=== PATIENT | female | born 1995 | race African-American/Black ===

== ENCOUNTER 2019-08-20 13:28 | Emergency (ER) | payer OTHER, SELFPAY ==
[2019-08-20 13:33] VITALS: BP 140/89; PULSE 83; RESP 20; TEMP 36.4; O2SAT 99
[2019-08-20 14:04] LABS: UR Morphine/Opiate cutoff 300 Negative (Negative); Ur Creatinine Normal (Normal); Ur Specific Gravity Normal (Normal); Urine Amphetamines Negative (Negative); Urine Barbiturates Negative (Negative); Urine Benzodiazepines Negative (Negative); Urine Cocaine Negative (Negative); Urine MDMA Negative (Negative); Urine Methadone Negative (Negative); Urine Methamphetamines Negative (Negative); Urine Oxycodone Negative (Negative); Urine Phencyclidine Negative (Negative); Urine Tetrahydrocannabinol Negative (Negative); Urine Tricyclic Antidepressant Negative (Negative); Urine pH Normal (Normal)
[2019-08-20 14:05] LABS: Add Manual Diff / Slide Review NO; Basophils Absolute Auto 100 /uL (0-100); Basophils Percent Auto 0.7 % (0-2); Eosinophils Absolute Auto 300 /uL (0-450); Eosinophils Percent Auto 2.9 % (2-4); Hematocrit 37.7 % (36-46); Hemoglobin 12.8 g/dL (12.0-16.0); Lymphocytes Absolute Auto 2000 /uL (1100-4500); Lymphocytes Percent Auto 18.5 % (25-40); Mean Corpuscular HGB Conc 33.8 % (30-36); Mean Corpuscular Hemoglobin 29.7 PG (26-34); Mean Corpuscular Volume 87.7 fL (80-100); Monocytes Absolute Auto 700 /uL (0-900); Monocytes Percent Auto 6.1 % (3-14); Neutrophils Absolute Auto 7700 /uL (1500-7000); Neutrophils Percent Auto 71.8 % (50-75); Platelet Count 413 X10^3/uL (150-400); Red Cell Distribution Width 13.3 % (11.6-14.8); White Blood Cell Count 10.7 X10^3/uL (4.5-11.0)
--- NOTE | 2019-08-20 14:16 | PC.NURSE ---
ED provider in patient room speaking with patient and patients [facility] chief
[2019-08-20 14:17] LABS: Acetaminophen < 10 ug/mL (10-30); Alanine Aminotransferase 16 IU/L (<35); Albumin 4.6 g/dL (3.5-5.0); Albumin Globulin Ratio 1.1 (1.0-2.8); Alkaline Phosphatase 92 U/L (38-126); Aspartate Aminotransferase 26 IU/L (14-36); BUN Creatinine Ratio 14.3 (6-22); Bilirubin Total 0.2 mg/dL (0.2-1.3); Blood Urea Nitrogen 10 mg/dL (7-17); Calcium 9.5 mg/dL (8.4-10.2); Carbon Dioxide 25 mmol/L (22-32); Chloride 105 mmol/L (98-107); Estimated Glomerular Filt Rate > 60.0 mL/min (>60); Ethanol (ETOH) < 10 mg/dL; Globulin 4.2 g/dL (1.7-4.1); Glucose 96 mg/dL (70-100); HEMOLYSIS < 15 (0-50); Potassium 3.9 mmol/L (3.4-5.1); Salicylate < 1.0 mg/dL (<20); Sodium 140 mmol/L (137-145); Total Protein 8.8 g/dL (6.3-8.2)
--- NOTE | 2019-08-20 14:27 | PC.NURSE ---
PT STATED HAS PLAN OF CUTTING. TOOK ALL PERSONAL POSSESSIONS. DURING SKIN CHECK, NO SIGNS OF SELF INFLICTED INJURY. PT QUIET AND COOPERATIVE.
[2019-08-20 14:41] LABS: Free T4, Direct Thyroxine 0.98 ng/dL (0.78-2.19)
[2019-08-20 14:55] LABS: Thyroid Stimulating Hormone 3.29 uIU/mL (0.47-4.68)
--- NOTE | 2019-08-20 15:22 | PC.NURSE ---
I spoke with Brianna in Transfer center at [facility]. They report they have beds and I faxed information for medical Clearance to them. They report they will call back.
--- NOTE | 2019-08-20 15:34 | ED.PSYCH ---
HPI - Psych <MATY Gonzalez- - Last Filed: 08/20/19 19:12> General Chief Complaint: Psychiatric Symptoms Stated Complaint: SI Time Seen by Provider: 08/20/19 14:00 Source: patient Mode of arrival: Ambulatory Limitations: no limitations History of Present Illness HPI Narrative: The patient is a 24-year-old female nonsmoker who denies pertinent medical history who presents with a chief complaint of suicidal ideation. She states she has many plans, including slitting of her wrist. She reports that she has felt this way for months, has not had help for it. She is very withdrawn and not participate of during my interview. 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 She states she has had a counselor, has not seen a psychiatric prescriber or a provider regarding her suicide ideations. She denies any homicidal ideations drug or alcohol use. She is not on any psychiatric medications right now. She denies any hallucinations. Related Data Allergies Allergy/AdvReac Type Severity Reaction Status Date / Time No Known Drug Allergies Allergy Verified 08/20/19 14:06 Review of Systems <MAXIMO Gonzalez - Last Filed: 08/20/19 19:12> Review of Systems Narrative: GENERAL: Denies chills, fatigue, malaise, fever, sweats. HEENT: Denies sinus pain, ear pain, sore throat, difficulty swallowing, dizziness. RESPIRATORY: Denies dyspnea, cough, wheezing, hemoptysis, sputum. CARDIOVASCULAR: Denies chest pain, palpitations, orthopnea, edema, GASTROINTESTINAL: Denies nausea, vomiting, abdominal pain, diarrhea, constipation, melena. : Denies dysuria, frequency, incontinence, hematuria, urinary retention. MUSCULOSKELETAL: denies weakness, joint pain, or bony pain SKIN: Denies rash, skin lesions, or other NEUROLOGIC: Denies weakness, headache, numbness, change in speech, confusion, seizures, incoordination. PSYCHIATRIC: See HPI 12 point review of systems is negative except for those stated above Exam <MAXIMO Gonzalez - Last Filed: 08/20/19 19:12> Narrative Exam Narrative: GENERAL: This is a well-nourished, well-developed patient, in no acute distress HEAD: Atraumatic. Normocephalic. No temporal or scalp tenderness. EYES: Pupils equal round and reactive. Extraocular motions intact. No scleral icterus. No injection or drainage. ENT: Nose without bleeding, purulent drainage or septal hematoma. Throat without erythema, tonsillar hypertrophy or exudate. Uvula midline. Airway patent. NECK: Trachea midline. No JVD or lymphadenopathy. Supple, nontender, no meningeal signs. CARDIOVASCULAR: Regular rate and rhythm without murmurs, gallops, or rubs. RESPIRATORY: Clear to auscultation. Breath sounds equal bilaterally. No wheezes, rales, or rhonchi. GASTROINTESTINAL: Abdomen soft, non-tender, nondistended. No hepato-splenomegaly, or palpable masses. No guarding. EXTREMITIES: No clubbing, cyanosis, or edema. No joint tenderness, effusion, or edema noted. BACK: Nontender without deformity or crepitance. No flank tenderness. NEURO: AOx3. Very flat affect. Withdrawn. SKIN: No rash or erythema. Initial Vital Signs Initial Vital Signs: Vital Signs Temperature 97.5 F L 08/20/19 13:33 Pulse Rate 83 08/20/19 13:33 Respiratory Rate 20 08/20/19 13:33 Blood Pressure 140/89 08/20/19 13:33 Pulse Oximetry 99 08/20/19 13:33 <Federica Centeno MD - Last Filed: 08/21/19 11:18> Initial Vital Signs Initial Vital Signs: Vital Signs Temperature 97.5 F L 08/20/19 13:33 Pulse Rate 83 08/20/19 13:33 Respiratory Rate 20 08/20/19 13:33 Blood Pressure 140/89 08/20/19 13:33 Pulse Oximetry 99 08/20/19 13:33 Course <VAZQUEZ Gonzalez - Last Filed: 08/20/19 19:12> Orders Ordered: ED Orders 08/20/19 13:53 Urine Drug Screen, Rapid Stat 08/20/19 13:58 Acetaminophen Stat Complete Blood Count AUTO DIFF Stat Comprehensive Metabolic Panel Stat Ethanol (ETOH) Stat Free T4, Direct Thyroxine Stat Salicylate Stat Thyroid Stimulating Hormone Stat 08/20/19 14:25 Consult to [facility] - [employer] Consultant Stat Vital Signs Vital signs: Vital Signs - 8 hr 08/20/19 13:33 08/20/19 18:14 Temperature 97.5 F L Pulse Rate 83 61 Respiratory Rate 20 14 Blood Pressure 140/89 Blood Pressure [Right Arm] 135/72 Pulse Oximetry 99 100 <Federica Centeno MD - Last Filed: 08/21/19 11:18> Orders Ordered: ED Orders 08/20/19 13:53 Urine Drug Screen, Rapid Stat 08/20/19 13:58 Acetaminophen Stat Complete Blood Count AUTO DIFF Stat Comprehensive Metabolic Panel Stat Ethanol (ETOH) Stat Free T4, Direct Thyroxine Stat Salicylate Stat Thyroid Stimulating Hormone Stat 08/20/19 14:25 Consult to [facility] - [employer] Ad[employer] Consultant Stat Vital Signs Vital signs: Vital Signs - 8 hr 08/20/19 13:33 08/20/19 18:14 Temperature 97.5 F L Pulse Rate 83 61 Respiratory Rate 20 14 Blood Pressure 140/89 Blood Pressure [Right Arm] 135/72 Pulse Oximetry 99 100 MDM - Psych <MATY Gonzalez- - Last Filed: 08/20/19 19:12> Lab Data Result diagrams: 08/20/19 13:58 08/20/19 13:58 Labs: Lab Results 08/20/19 08/20/19 08/20/19 Range/Units 13:53 13:58 13:58 WBC 10.7 (4.5-11.0) X10^3/uL RBC 4.30 (4.0-5.2) X10^6/uL Hgb 12.8 (12.0-16.0) g/dL Hct 37.7 (36-46) % MCV 87.7 (80-100) fL MCH 29.7 (26-34) PG MCHC 33.8 (30-36) % RDW 13.3 (11.6-14.8) % Plt Count 413 H (150-400) X10^3/uL Neut % (Auto) 71.8 (50-75) % Lymph % (Auto) 18.5 L (25-40) % [place] % (Auto) 6.1 (3-14) % Eos % (Auto) 2.9 (2-4) % Baso % (Auto) 0.7 (0-2) % Neut # (Auto) 7700 H (1520-9207) /uL Lymph # (Auto) 2000 (6993-7774) /uL [place] # (Auto) 700 (0-900) /uL Eos # (Auto) 300 (0-450) /uL Baso # (Auto) 100 (0-100) /uL Sodium 140 (137-145) mmol/L Potassium 3.9 (3.4-5.1) mmol/L Chloride 105 (98-107) mmol/L Carbon Dioxide 25 (22-32) mmol/L BUN 10 (7-17) mg/dL Creatinine 0.70 (0.52-1.04) mg/dL Estimated GFR > 60.0 (>60) mL/min BUN/Creatinine Ratio 14.3 (6-22) Glucose 96 (70-100) mg/dL Calcium 9.5 (8.4-10.2) mg/dL Total Bilirubin 0.2 (0.2-1.3) mg/dL AST 26 (14-36) IU/L ALT 16 (<35) IU/L Alkaline Phosphatase 92 (38-126) U/L Total Protein 8.8 H (6.3-8.2) g/dL Albumin 4.6 (3.5-5.0) g/dL Globulin 4.2 H (1.7-4.1) g/dL Albumin/Globulin Ratio 1.1 (1.0-2.8) TSH (0.47-4.68) uIU/mL Free T4 (0.78-2.19) ng/dL Salicylates < 1.0 (<20) mg/dL U Opiates 300ng/mL cut Negative (Negative) Ur Oxycodone Screen Negative (Negative) Urine Methadone Screen Negative (Negative) Acetaminophen < 10 L (10-30) ug/mL Ur Barbiturates Screen Negative (Negative) U Tricyclic Antidepress Negative (Negative) Ur Phencyclidine Scrn Negative (Negative) Ur Amphetamines Screen Negative (Negative) U Methamphetamines Scrn Negative (Negative) Ur MDMA Scrn (Ecstasy) Negative (Negative) U Benzodiazepines Scrn Negative (Negative) Urine Cocaine Screen Negative (Negative) U Marijuana (THC) Screen Negative (Negative) Ethyl Alcohol < 10 ( - 10) mg/dL 08/20/19 Range/Units 13:58 WBC (4.5-11.0) X10^3/uL RBC (4.0-5.2) X10^6/uL Hgb (12.0-16.0) g/dL Hct (36-46) % MCV (80-100) fL MCH (26-34) PG MCHC (30-36) % RDW (11.6-14.8) % Plt Count (150-400) X10^3/uL Neut % (Auto) (50-75) % Lymph % (Auto) (25-40) % [place] % (Auto) (3-14) % Eos % (Auto) (2-4) % Baso % (Auto) (0-2) % Neut # (Auto) (6549-1664) /uL Lymph # (Auto) (8383-5470) /uL [place] # (Auto) (0-900) /uL Eos # (Auto) (0-450) /uL Baso # (Auto) (0-100) /uL Sodium (137-145) mmol/L Potassium (3.4-5.1) mmol/L Chloride (98-107) mmol/L Carbon Dioxide (22-32) mmol/L BUN (7-17) mg/dL Creatinine (0.52-1.04) mg/dL Estimated GFR (>60) mL/min BUN/Creatinine Ratio (6-22) Glucose (70-100) mg/dL Calcium (8.4-10.2) mg/dL Total Bilirubin (0.2-1.3) mg/dL AST (14-36) IU/L ALT (<35) IU/L Alkaline Phosphatase (38-126) U/L Total Protein (6.3-8.2) g/dL Albumin (3.5-5.0) g/dL Globulin (1.7-4.1) g/dL Albumin/Globulin Ratio (1.0-2.8) TSH 3.29 (0.47-4.68) uIU/mL Free T4 0.98 (0.78-2.19) ng/dL Salicylates (<20) mg/dL U Opiates 300ng/mL cut (Negative) Ur Oxycodone Screen (Negative) Urine Methadone Screen (Negative) Acetaminophen (10-30) ug/mL Ur Barbiturates Screen (Negative) U Tricyclic Antidepress (Negative) Ur Phencyclidine Scrn (Negative) Ur Amphetamines Screen (Negative) U Methamphetamines Scrn (Negative) Ur MDMA Scrn (Ecstasy) (Negative) U Benzodiazepines Scrn (Negative) Urine Cocaine Screen (Negative) U Marijuana (THC) Screen (Negative) Ethyl Alcohol ( - 10) mg/dL Point of Care Testing Test Results Negative Urine Dip Bedside Urine Glucose Negative Bedside Urine Bilirubin - Negative Bedside Urine Ketone - Negative Urine Specific Asher 1.015 Bedside Urine Occult Blood + Bedside Urine pH 8.0 Bedside Urine Protein +/- 15 Bedside Urine Urobilinogen - Negative Bedside Urine Nitrite - Negative Bedside Urine Leukocytes - Negative Esterase MDM Narrative Medical decision making narrative: The patient is a 24-year-old female who presents with a chief complaint of suicidal ideations. She is very withdrawn, answers yes to all of her suicide risk screening questions on triage. She states she has multiple suicidal ideations, and has a very flat affect. I am concerned about this patient given her affect, presentation and complaint. 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 I spoke with arturo Vines at [facility] again who accepted the patient for transfer. She was transferred with her superior officer by S as per their request. Patient remained voluntary throughout her stay in the emergency department, remained with a sitter and was cooperative. However she was withdrawn, declined any as needed medication food and water throughout her stay. She was transferred to EMS at approximately 6:30 p.m.. <Federica Centeno MD - Last Filed: 08/21/19 11:18> Lab Data Labs: Lab Results 08/20/19 08/20/19 08/20/19 Range/Units 13:53 13:58 13:58 WBC 10.7 (4.5-11.0) X10^3/uL RBC 4.30 (4.0-5.2) X10^6/uL Hgb 12.8 (12.0-16.0) g/dL Hct 37.7 (36-46) % MCV 87.7 (80-100) fL MCH 29.7 (26-34) PG MCHC 33.8 (30-36) % RDW 13.3 (11.6-14.8) % Plt Count 413 H (150-400) X10^3/uL Neut % (Auto) 71.8 (50-75) % Lymph % (Auto) 18.5 L (25-40) % [place] % (Auto) 6.1 (3-14) % Eos % (Auto) 2.9 (2-4) % Baso % (Auto) 0.7 (0-2) % Neut # (Auto) 7700 H (0725-4799) /uL Lymph # (Auto) 2000 (5041-7122) /uL [place] # (Auto) 700 (0-900) /uL Eos # (Auto) 300 (0-450) /uL Baso # (Auto) 100 (0-100) /uL Sodium 140 (137-145) mmol/L Potassium 3.9 (3.4-5.1) mmol/L Chloride 105 (98-107) mmol/L Carbon Dioxide 25 (22-32) mmol/L BUN 10 (7-17) mg/dL Creatinine 0.70 (0.52-1.04) mg/dL Estimated GFR > 60.0 (>60) mL/min BUN/Creatinine Ratio 14.3 (6-22) Glucose 96 (70-100) mg/dL Calcium 9.5 (8.4-10.2) mg/dL Total Bilirubin 0.2 (0.2-1.3) mg/dL AST 26 (14-36) IU/L ALT 16 (<35) IU/L Alkaline Phosphatase 92 (38-126) U/L Total Protein 8.8 H (6.3-8.2) g/dL Albumin 4.6 (3.5-5.0) g/dL Globulin 4.2 H (1.7-4.1) g/dL Albumin/Globulin Ratio 1.1 (1.0-2.8) TSH (0.47-4.68) uIU/mL Free T4 (0.78-2.19) ng/dL Salicylates < 1.0 (<20) mg/dL U Opiates 300ng/mL cut Negative (Negative) Ur Oxycodone Screen Negative (Negative) Urine Methadone Screen Negative (Negative) Acetaminophen < 10 L (10-30) ug/mL Ur Barbiturates Screen Negative (Negative) U Tricyclic Antidepress Negative (Negative) Ur Phencyclidine Scrn Negative (Negative) Ur Amphetamines Screen Negative (Negative) U Methamphetamines Scrn Negative (Negative) Ur MDMA Scrn (Ecstasy) Negative (Negative) U Benzodiazepines Scrn Negative (Negative) Urine Cocaine Screen Negative (Negative) U Marijuana (THC) Screen Negative (Negative) Ethyl Alcohol < 10 ( - 10) mg/dL 08/20/19 Range/Units 13:58 WBC (4.5-11.0) X10^3/uL RBC (4.0-5.2) X10^6/uL Hgb (12.0-16.0) g/dL Hct (36-46) % MCV (80-100) fL MCH (26-34) PG MCHC (30-36) % RDW (11.6-14.8) % Plt Count (150-400) X10^3/uL Neut % (Auto) (50-75) % Lymph % (Auto) (25-40) % [place] % (Auto) (3-14) % Eos % (Auto) (2-4) % Baso % (Auto) (0-2) % Neut # (Auto) (5730-4815) /uL Lymph # (Auto) (0839-0986) /uL [place] # (Auto) (0-900) /uL Eos # (Auto) (0-450) /uL Baso # (Auto) (0-100) /uL Sodium (137-145) mmol/L Potassium (3.4-5.1) mmol/L Chloride (98-107) mmol/L Carbon Dioxide (22-32) mmol/L BUN (7-17) mg/dL Creatinine (0.52-1.04) mg/dL Estimated GFR (>60) mL/min BUN/Creatinine Ratio (6-22) Glucose (70-100) mg/dL Calcium (8.4-10.2) mg/dL Total Bilirubin (0.2-1.3) mg/dL AST (14-36) IU/L ALT (<35) IU/L Alkaline Phosphatase (38-126) U/L Total Protein (6.3-8.2) g/dL Albumin (3.5-5.0) g/dL Globulin (1.7-4.1) g/dL Albumin/Globulin Ratio (1.0-2.8) TSH 3.29 (0.47-4.68) uIU/mL Free T4 0.98 (0.78-2.19) ng/dL Salicylates (<20) mg/dL U Opiates 300ng/mL cut (Negative) Ur Oxycodone Screen (Negative) Urine Methadone Screen (Negative) Acetaminophen (10-30) ug/mL Ur Barbiturates Screen (Negative) U Tricyclic Antidepress (Negative) Ur Phencyclidine Scrn (Negative) Ur Amphetamines Screen (Negative) U Methamphetamines Scrn (Negative) Ur MDMA Scrn (Ecstasy) (Negative) U Benzodiazepines Scrn (Negative) Urine Cocaine Screen (Negative) U Marijuana (THC) Screen (Negative) Ethyl Alcohol ( - 10) mg/dL Point of Care Testing Test Results Negative Urine Dip Bedside Urine Glucose Negative Bedside Urine Bilirubin - Negative Bedside Urine Ketone - Negative Urine Specific Asher 1.015 Bedside Urine Occult Blood + Bedside Urine pH 8.0 Bedside Urine Protein +/- 15 Bedside Urine Urobilinogen - Negative Bedside Urine Nitrite - Negative Bedside Urine Leukocytes - Negative Esterase Discharge Plan Departure Patient Disposition: Xfer Psychiatric Hosp Clinical Impression: Suicidal ideations Discharge Date/Time: 08/20/19 18:40
--- NOTE | 2019-08-20 16:07 | PC.NURSE ---
Pt. standing calmly against wall . Currently receiving vitals
--- NOTE | 2019-08-20 16:43 | PC.NURSE ---
Warm blanket provided. Pt sitting calmly
[2019-08-20 18:14] VITALS: BP 135/72; PULSE 61; RESP 14; O2SAT 100
--- NOTE | 2019-08-20 18:25 | PC.NURSE ---
[facility] has arrived for transfer to facility
--- NOTE | 2019-08-20 18:32 | PC.NURSE ---
Bathroom offered prior to departure with [facility]
== END 2019-08-20 18:40 ==
PROVIDERS: Emergency Medicine; Emergency Provider Nurse Practitioner Family
DX: R45.851 Suicidal ideations (principal)
CPT/HCPCS: 80053; 80305; 80320; 80329; 81003; 81025; 84439; 84443; 85025; 99284; G0480

== ENCOUNTER 2019-09-30 22:08 | Emergency (ER) | payer OTHER, SELFPAY ==
[2019-09-30 22:17] VITALS: BP 157/79; PULSE 90; RESP 16; TEMP 36.4; O2SAT 98
--- NOTE | 2019-09-30 22:31 | ED_ITS ---
HPI - Psych General Chief Complaint: Psychiatric Symptoms Stated Complaint: self inflicting Time Seen by Provider: 09/30/19 22:12 Source: patient Mode of arrival: Ambulatory Limitations: no limitations History of Present Illness HPI Narrative: 24-year-old female who was seen here in this emergency department at the end of July 2019 for suicidal ideation. She was transferred to [facility]. She states that she was there for approximately 6 days and then discharged home. Since then she has been following up with mental health here at the local [facility]. She is on medications for ?depression? ?anxiety? ?a muscle relaxer?. She does not know what medicines he is actually are. She states she has being from the [place] and this is causing her quite a bit of ?stress ?she states that today she became ?overwhelmed? she does not know the specific incident of what made her feel like this however she thinks that it is everything in general that is causing the symptoms. She did do some superficial cutting to her left arm. She states that it was a stress release. She has cut herself in the past. States she had fairly intrusive thoughts today about cutting her arm ?so deep ?that it would cause her to . She is still currently having these thoughts. She arrived here with a member of her command. Denies any alcohol or drug use. Related Data Allergies Allergy/AdvReac Type Severity Reaction Status Date / Time No Known Drug Allergies Allergy Verified 08/20/19 14:06 Review of Systems Constitutional Constitutional: Denies headache(s) ENT Ears, Nose, Mouth, and Throat: Denies headache(s) and Denies disequilibrium Cardiovascular Cardiovascular: Denies chest pain and Denies dyspnea Respiratory Respiratory: Denies dyspnea Gastrointestinal Gastrointestinal: Denies abdominal pain Musculoskeletal Musculoskeletal: Denies myalgias and Denies arthralgias Integumentary/Breasts Comments: Superficial cuts left arm Neurologic Neurologic: Reports behavioral changes, Denies confusion, Denies headache(s) and Denies disequilibrium Psychiatric Psychiatric: Reports anxiety, Reports behavioral changes, Denies confusion, Re ports depression, Reports hopelessness, Reports irritability, Reports panic attacks, Denies homicidal ideation and Reports suicidal ideation Hematologic/Lymphatic Hematologic/Lymphatic: Denies easy bleeding and Denies easy bruising Patient History Medical History Anxiety (Acute) Depression (Inactive) Insomnia (Acute) Social History Smoking Status: Never smoker Smoking Status: Never smoker alcohol intake frequency: 0-2 drinks per day Substance Use Type: does not use Exam Initial Vital Signs Initial Vital Signs: Vital Signs Temperature 97.5 F L 09/30/19 22:17 Pulse Rate 90 09/30/19 22:17 Respiratory Rate 16 09/30/19 22:17 Blood Pressure 157/79 H 09/30/19 22:17 Pulse Oximetry 98 09/30/19 22:17 Const General: cooperative and comfortable Limitations: mental status not altered HENMT Head: normal to inspection and normocephalic Resp Effort & Inspection: normal respiratory effort Cardio Rate: regular rate Skin Other: Patient with multiple very superficial cuts to her left arm volar aspect. No active bleeding. No signs of infection. None of the cuts need intervention here in the ER Neuro General: alert and awake Cognition: normal cognition Extrem General: normal to inspection and capillary refill normal Psych Appearance: grossly normal and well kempt Speech and Movement: not agitated Mood: dysthymic mood, not manic, not paranoid and No angry Affect: sad and blunted Attitude: cooperative Thought Content: suicidality Judgment: poor Course Orders Ordered: ED Orders 09/30/19 22:25 Acetaminophen Stat Complete Blood Count AUTO DIFF Stat Comprehensive Metabolic Panel Stat Ethanol (ETOH) Stat Free T4, Direct Thyroxine Stat Salicylate Stat Thyroid Stimulating Hormone Stat 09/30/19 23:30 Urine Drug Screen, Rapid Stat Urine Microscopic Stat Vital Signs Vital signs: Vital Signs - 8 hr 09/30/19 22:17 Temperature 97.5 F L Pulse Rate 90 Respiratory Rate 16 Blood Pressure 157/79 H Pulse Oximetry 98 [facility] - Psych Medical Records Attestation: I reviewed the patient's medical records. Lab Data Attestation: I reviewed the patient's lab results. Result diagrams: 09/30/19 22:25 09/30/19 22:25 Labs: Lab Results 09/30/19 09/30/19 09/30/19 Range/Units 22:25 22:25 22:25 WBC 13.9 H (4.5-11.0) X10^3/uL RBC 4.23 (4.0-5.2) X10^6/uL Hgb 12.3 (12.0-16.0) g/dL Hct 36.8 (36-46) % MCV 87.0 (80-100) fL MCH 29.0 (26-34) PG MCHC 33.4 (30-36) % RDW 12.6 (11.6-14.8) % Plt Count 394 (150-400) X10^3/uL Neut % (Auto) Not Reportable Lymph % (Auto) Not Reportable [place] % (Auto) Not Reportable Eos % (Auto) Not Reportable Baso % (Auto) Not Reportable Lymph # (Auto) Not Reportable [place] # (Auto) Not Reportable Baso # (Auto) Not Reportable Total Counted 100 Seg Neutrophils % 79.0 H (38-70) % Band Neutrophils % 1.0 L (3-7) % Lymphocytes % (Manual) 13.0 L (25-45) % Monocytes % (Manual) 3.0 (2-11) % Eosinophils % (Manual) 4.0 (2-4) % Neutrophils # (Manual) 61806 H (1730-7867) /uL RBC Morphology Normal morphology Sodium 139 (137-145) mmol/L Potassium 4.0 (3.4-5.1) mmol/L Chloride 102 (98-107) mmol/L Carbon Dioxide 26 (22-32) mmol/L BUN 12 (7-17) mg/dL Creatinine 0.69 (0.52-1.04) mg/dL Estimated GFR > 60.0 (>60) mL/min BUN/Creatinine Ratio 17.4 (6-22) Glucose 89 (70-100) mg/dL Calcium 9.8 (8.4-10.2) mg/dL Total Bilirubin 0.3 (0.2-1.3) mg/dL AST 31 (14-36) IU/L ALT 18 (<35) IU/L Alkaline Phosphatase 87 (38-126) U/L Total Protein 8.4 H (6.3-8.2) g/dL Albumin 4.6 (3.5-5.0) g/dL Globulin 3.8 (1.7-4.1) g/dL Albumin/Globulin Ratio 1.2 (1.0-2.8) TSH 0.02 L (0.47-4.68) uIU/mL Free T4 1.64 (0.78-2.19) ng/dL Urine RBC (0-5/HPF) Urine WBC (0-5/HPF) Ur Squamous Epith Cells (0-5/HPF) Urine Bacteria (None) Ur Culture Indicated? Salicylates 1.0 (<20) mg/dL U Opiates 300ng/mL cut (Negative) Ur Oxycodone Screen (Negative) Urine Methadone Screen (Negative) Acetaminophen < 10 L (10-30) ug/mL Ur Barbiturates Screen (Negative) U Tricyclic Antidepress (Negative) Ur Phencyclidine Scrn (Negative) Ur Amphetamines Screen (Negative) U Methamphetamines Scrn (Negative) Ur MDMA Scrn (Ecstasy) (Negative) U Benzodiazepines Scrn (Negative) Urine Cocaine Screen (Negative) U Marijuana (THC) Screen (Negative) Ethyl Alcohol < 10 ( - 10) mg/dL 09/30/19 09/30/19 Range/Units 23:30 23:30 WBC (4.5-11.0) X10^3/uL RBC (4.0-5.2) X10^6/uL Hgb (12.0-16.0) g/dL Hct (36-46) % MCV (80-100) fL MCH (26-34) PG MCHC (30-36) % RDW (11.6-14.8) % Plt Count (150-400) X10^3/uL Neut % (Auto) Lymph % (Auto) [place] % (Auto) Eos % (Auto) Baso % (Auto) Lymph # (Auto) [place] # (Auto) Baso # (Auto) Total Counted Seg Neutrophils % (38-70) % Band Neutrophils % (3-7) % Lymphocytes % (Manual) (25-45) % Monocytes % (Manual) (2-11) % Eosinophils % (Manual) (2-4) % Neutrophils # (Manual) (7366-3481) /uL RBC Morphology Sodium (137-145) mmol/L Potassium (3.4-5.1) mmol/L Chloride (98-107) mmol/L Carbon Dioxide (22-32) mmol/L BUN (7-17) mg/dL Creatinine (0.52-1.04) mg/dL Estimated GFR (>60) mL/min BUN/Creatinine Ratio (6-22) Glucose (70-100) mg/dL Calcium (8.4-10.2) mg/dL Total Bilirubin (0.2-1.3) mg/dL AST (14-36) IU/L ALT (<35) IU/L Alkaline Phosphatase (38-126) U/L Total Protein (6.3-8.2) g/dL Albumin (3.5-5.0) g/dL Globulin (1.7-4.1) g/dL Albumin/Globulin Ratio (1.0-2.8) TSH (0.47-4.68) uIU/mL Free T4 (0.78-2.19) ng/dL Urine RBC None seen (0-5/HPF) Urine WBC 0-1/hpf (0-5/HPF) Ur Squamous Epith Cells >30 /hpf H (0-5/HPF) Urine Bacteria Few (2-10) H (None) Ur Culture Indicated? Cult not indicated Salicylates (<20) mg/dL U Opiates 300ng/mL cut Negative (Negative) Ur Oxycodone Screen Negative (Negative) Urine Methadone Screen Negative (Negative) Acetaminophen (10-30) ug/mL Ur Barbiturates Screen Negative (Negative) U Tricyclic Antidepress Positive H (Negative) Ur Phencyclidine Scrn Negative (Negative) Ur Amphetamines Screen Negative (Negative) U Methamphetamines Scrn Negative (Negative) Ur MDMA Scrn (Ecstasy) Negative (Negative) U Benzodiazepines Scrn Negative (Negative) Urine Cocaine Screen Negative (Negative) U Marijuana (THC) Screen Negative (Negative) Ethyl Alcohol ( - 10) mg/dL Point of Care Testing Test Results Negative Urine Dip Bedside Urine Glucose Negative Bedside Urine Bilirubin - Negative Bedside Urine Ketone - Negative Urine Specific [place] 1.025 Bedside Urine Occult Blood + Bedside Urine pH 6.0 Bedside Urine Protein - Negative Bedside Urine Urobilinogen - Negative Bedside Urine Nitrite - Negative Bedside Urine Leukocytes - Negative Esterase MDM Narrative Medical decision making narrative: Patient is medically cleared. Is currently still suicidal per her report. Discussed case with Dr. Pamla with mental health at [facility]. Patient is stable for transport. Discharge Plan Departure Patient Disposition: [facility] Clinical Impression: Suicidal ideation, Depression, Abrasion of skin
[2019-09-30 22:39] LABS: Hematocrit 36.8 % (36-46); Hemoglobin 12.3 g/dL (12.0-16.0); Mean Corpuscular HGB Conc 33.4 % (30-36); Platelet Count 394 X10^3/uL (150-400); Red Blood Cell Count 4.23 X10^6/uL (4.0-5.2); Red Cell Distribution Width 12.6 % (11.6-14.8); White Blood Cell Count 13.9 X10^3/uL (4.5-11.0)
[2019-09-30 22:40] LABS: Add Manual Diff / Slide Review YES
[2019-09-30 22:46] LABS: Acetaminophen < 10 ug/mL (10-30); Alanine Aminotransferase 18 IU/L (<35); Albumin 4.6 g/dL (3.5-5.0); Albumin Globulin Ratio 1.2 (1.0-2.8); Alkaline Phosphatase 87 U/L (38-126); Aspartate Aminotransferase 31 IU/L (14-36); BUN Creatinine Ratio 17.4 (6-22); Bilirubin Total 0.3 mg/dL (0.2-1.3); Blood Urea Nitrogen 12 mg/dL (7-17); Calcium 9.8 mg/dL (8.4-10.2); Carbon Dioxide 26 mmol/L (22-32); Chloride 102 mmol/L (98-107); Estimated Glomerular Filt Rate > 60.0 mL/min (>60); Ethanol (ETOH) < 10 mg/dL; Globulin 3.8 g/dL (1.7-4.1); Glucose 89 mg/dL (70-100); HEMOLYSIS 29 (0-50); Sodium 139 mmol/L (137-145); Total Protein 8.4 g/dL (6.3-8.2)
[2019-09-30 23:15] LABS: Free T4, Direct Thyroxine 1.64 ng/dL (0.78-2.19); Neutrophils Absolute Manual 11120 /uL (3000-5900); Total Cells Counted 100
[2019-09-30 23:16] LABS: RBC Morphology Normal Morphology
[2019-09-30 23:31] LABS: Thyroid Stimulating Hormone 0.02 uIU/mL (0.47-4.68)
--- NOTE | 2019-09-30 23:38 | PC.NURSE ---
Pt. provided urine sample
[2019-09-30 23:45] LABS: RBC Urine None Seen (0-5/HPF)
[2019-09-30 23:52] LABS: UR Morphine/Opiate cutoff 300 Negative (Negative); Ur Creatinine 20 (Normal); Ur Specific Gravity 1.025 (Normal); Urine Amphetamines Negative (Negative); Urine Barbiturates Negative (Negative); Urine Benzodiazepines Negative (Negative); Urine Cocaine Negative (Negative); Urine MDMA Negative (Negative); Urine Methadone Negative (Negative); Urine Methamphetamines Negative (Negative); Urine Oxycodone Negative (Negative); Urine Phencyclidine Negative (Negative); Urine Tetrahydrocannabinol Negative (Negative); Urine Tricyclic Antidepressant Positive (Negative); Urine pH 5 (Normal)
[2019-09-30 23:57] LABS: Squamous Epithelial Cell Urine >30 /HPF (0-5/HPF); WBC Urine 0-1/HPF (0-5/HPF)
[2019-09-30 23:58] LABS: Bacteria Urine Few (2-10); Culture Indicated Urine Cult Not Indicated
--- NOTE | 2019-10-01 00:11 | PC.NURSE ---
At this time I spoke with Anastasia at the transfer center at [facility]. She will call back with bed placement and acceptance. Report given to her at this time and she is speaking with Dr. Montesinos.
--- NOTE | 2019-10-01 01:44 | PC.NURSE ---
[facility] has arrived to transport Pt. to [facility]
--- NOTE | 2019-10-01 01:52 | PC.NURSE ---
Pt has left with transport to [facility]
== END 2019-10-01 01:51 | disposition short-term general hospital (02) ==
PROVIDERS: Emergency Provider Emergency Medicine
DX: R45.851 Suicidal ideations (principal); F32.9 Major depressive disorder, single episode, unspecified; S40.812A Abrasion of left upper arm, initial encounter; X99.9XXA Assault by unspecified sharp object, initial encounter
CPT/HCPCS: 36415; 80053; 80305; 80320; 80329; 81003; 81015; 81025; 84439; 84443; 85025; 99284; G0480